=== PATIENT | female | born 1930 | race Hispanic/Latino ===

== ENCOUNTER 2017-02-15 20:17 | Emergency (ER) | payer MEDICARE ==
[2017-02-15 20:38] VITALS: O2SAT 99
[2017-02-15 20:46] LABS: BASO % 0.4 % (0.0-2.0); EOS % 0.3 % (0.0-4.0); HEMATOCRIT 36.1 % (34.0-47.0); LYMPH # 1.9 K/uL (1.0-4.3); LYMPH % 17.5 % (20.0-40.0); MEAN CELL VOLUME 64.8 fL (81.0-99.0); MEAN CORPUSCULAR HEMOGLOBIN 20.2 pg (27.0-31.0); MEAN CORPUSCULAR HGB CONC 31.2 g/dL (33.0-37.0); MEAN PLATELET VOLUME 9.9 fL (7.2-11.7); MONO # 0.4 K/uL (0.0-0.8); MONO % 3.8 % (0.0-10.0); RED CELL DISTRIBUTION WIDTH 16.7 % (11.5-14.5); WHITE BLOOD COUNT 10.8 K/uL (4.8-10.8)
--- NOTE | 2017-02-15 20:46 | C.PDOC ---
History Of Present Illness 86 y/o female, with history of diabetes, brought in by EMS after found unresponsive at home. Patient was given d50 by medics en route to ER - blood glucose level found to be 33. Denies fever, chills, chest pain, SOB, or other associated symptoms. Chief Complaint (Nursing): Weakness/Neurological Deficit History Per: Patient, EMS History/Exam Limitations: no limitations Current Symptoms Are (Timing): Still Present Recent travel outside of the [place]: No Past Medical History Reviewed: Historical Data, Nursing Documentation, Vital Signs Vital Signs: Last Vital Signs Temp 97.8 F 02/15/17 23:32 Pulse 73 02/15/17 22:44 Resp 12 02/15/17 22:44 BP 183/71 H 02/15/17 22:44 Pulse Ox 99 02/15/17 22:44 - Medical History PMH: HTN Surgical History: Cholecystectomy Family History: States: Unknown Family Hx - Social History Hx Alcohol Use: No Hx Substance Use: No - Immunization History Hx Tetanus Toxoid Vaccination: No Hx Influenza Vaccination: Yes Hx Pneumococcal Vaccination: Yes Review Of Systems Except As Marked, All Systems Reviewed And Found Negative. Constitutional: Negative for: Fever, Chills Cardiovascular: Negative for: Chest Pain Respiratory: Negative for: Cough, Shortness of Breath, Wheezing Gastrointestinal: Negative for: Nausea, Vomiting Skin: Negative for: Rash Physical Exam - Physical Exam Appears: Non-toxic, No Acute Distress, Other (awake, alert) Skin: Warm, Dry Head: Atraumatic, Normacephalic Oral Mucosa: Moist Chest: Symmetrical Cardiovascular: Murmur (systolic murmur 2/6 aortic area) Respiratory: Normal Breath Sounds, No Rales, No Rhonchi, No Wheezing Gastrointestinal/Abdominal: Soft, No Tenderness, No Guarding, No Rebound Back: Normal Inspection Extremity: Normal ROM, Capillary Refill (< 2 sec.), Other (3+ edema bilateral lower extremities ) Neurological/Psych: Oriented x3, Normal Speech, Normal Cognition ED Course And Treatment - Laboratory Results Result Diagrams: 02/15/17 20:43 02/15/17 22:17 ECG: Interpreted By Me, Viewed By Me ECG Rhythm: Sinus Rhythm ECG Interpretation: Abnormal Interpretation Of ECG: Sinus rhythmn with sinus arrythmia, ST-T abnormality- inferolateral, no acute changes, prolonged QT interval, abnormal tracings Rate From EC O2 Sat by Pulse Oximetry: 99 (RA) Pulse Ox Interpretation: Normal Progress Note: CT head, EKG, bloodwork, CxR, UA ordered. Medical Decision Making Medical Decision Makin:40. Patient is alert and conscious. Family does not want her to stay in hospital. Patient will be discharge home. Disposition Counseled Patient/Family Regarding: Diagnosis - Disposition Referrals: [facility] [Outside] Disposition: HOME/ ROUTINE Disposition Time: 23:32 Condition: STABLE Instructions: Diabetic Hypoglycemia (ED) Forms: [employer] (Montenegrin) - POA Present On Arrival: None - Clinical Impression Clinical Impression: Hypoglycemia, Diabetes mellitus - Scribe Statement The provider has reviewed the documentation as recorded by the Scribe SM All medical record entries made by the Scribe were at my direction and personally dictated by me. I have reviewed the chart and agree that the record accurately reflects my personal performance of the history, physical exam, medical decision making, and the department course for this patient. I have also personally directed, reviewed, and agree with the discharge instructions and disposition.
[2017-02-15 20:55] LABS: CHLORIDE 105 mmol/L (98-107); SODIUM 139 mmol/L (132-148)
[2017-02-15 20:58] LABS: ALB/GLOB RATIO 1.3 (1.0-2.1); ALKALINE PHOSPHATASE 39 U/L (38-126); ALT/SGPT 26 U/L (9-52); AST/SGOT 41 U/L (14-36); BILIRUBIN,TOTAL 1.1 mg/dL (0.2-1.3); BLOOD UREA NITROGEN 14 mg/dL (7-17); CARBON DIOXIDE 20 mmol/L (22-30); GFR AFRICAN-AMERICAN > 60; GLUCOSE,RANDOM 128 mg/dL (65-105); TOTAL PROTEIN 7.4 g/dL (6.3-8.3)
[2017-02-15 20:59] LABS: CALCIUM 8.9 mg/dl (8.6-10.4)
[2017-02-15 21:11] LABS: POTASSIUM 6.1 mmol/L (3.6-5.2)
--- NOTE | 2017-02-15 21:38 | CT ---
EXAM: CT Head Without Intravenous Contrast CLINICAL HISTORY: 86 years old, female; Pain; Headache; Headache not specified TECHNIQUE: Axial computed tomography images of the head/brain without intravenous contrast. All CT scans at this facility use one or more dose reduction techniques, viz.: automated exposure control; ma/kV adjustment per patient size (including targeted exams where dose is matched to indication; i.e. head); or iterative reconstruction technique. COMPARISON: No relevant prior studies available. FINDINGS: Brain: No acute intracranial hemorrhage. Age-appropriate periventricular white matter disease. No edema. Basal ganglia calcifications. 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 Ventricles: Age-appropriate ventriculomegaly. Bones: No acute displaced fracture. Sinuses: Unremarkable as visualized. No acute sinusitis. Mastoid air cells: Unremarkable as visualized. No mastoid effusion. IMPRESSION: No acute intracranial hemorrhage, or suspicious mass effect.
[2017-02-15 22:29] LABS: CHLORIDE 104 mmol/L (98-107); POTASSIUM 4.6 mmol/L (3.6-5.2); SODIUM 139 mmol/L (132-148)
[2017-02-15 22:31] LABS: GFR AFRICAN-AMERICAN > 60
[2017-02-15 22:32] LABS: BLOOD UREA NITROGEN 14 mg/dL (7-17); CALCIUM 9.3 mg/dl (8.6-10.4); CARBON DIOXIDE 23 mmol/L (22-30); GLUCOSE,RANDOM 117 mg/dL (65-105)
[2017-02-15 22:46] VITALS: BP 183/71; PULSE 73; RESP 12
[2017-02-15 23:33] VITALS: TEMP 97.8
--- NOTE | 2017-02-16 08:58 | RAD ---
HISTORY: leg edema, R/O CHF COMPARISON: No prior. FINDINGS: LUNGS: Moderate venous congestion. Right hilar prominence. Diffuse increased interstitial lung markings. PLEURA: No significant pleural effusion identified, no pneumothorax apparent. CARDIOVASCULAR: Calcification at the aortic knob. Tortuous aorta. OSSEOUS STRUCTURES: Degenerative changes in the spine and shoulders. VISUALIZED UPPER ABDOMEN: Normal. OTHER FINDINGS: None. IMPRESSION: Moderate venous congestion. Right hilar prominence. Diffuse increased interstitial lung markings.
--- NOTE | 2017-02-20 22:01 | CARD ---
APPROVED REPORT EKG Measurement Heart [id number] <Conclusion> Sinus rhythm with marked sinus arrhythmia ST & T wave abnormality, consider inferolateral ischemia Prolonged QT Abnormal ECG
== END 2017-02-15 23:53 | disposition home or self-care (01) ==
LOC: C.ER 20:17
DX: E11.649 Type 2 diabetes mellitus with hypoglycemia without coma (principal); I10 Essential (primary) hypertension

== ENCOUNTER 2017-07-18 10:27 | Emergency (ER) | payer MEDICARE ==
[2017-07-18 10:41] VITALS: BMI 30.2
--- NOTE | 2017-07-18 11:53 | C.PDOC ---
History Of Present Illness 87 y/o female presents to ED sent by PMD for evaluation of low hemoglobin. As per daughters at bedside patient had blood work 1 month ago and had hemoglobin of 9. Patient had lab work again 4 days ago and were called yesterday by PMD that hemoglobin was 8.3 and to come to ED for evaluation. Patient is on folic acid and denies blood in stool, hematuria or weakness. Time Seen by Provider: 07/18/17 10:50 Chief Complaint (Nursing): Abnormal Labs History Per: Patient, Family History/Exam Limitations: no limitations Onset/Duration Of Symptoms: Days Current Symptoms Are (Timing): Still Present Past Medical History Reviewed: Historical Data, Nursing Documentation, Vital Signs Vital Signs: Last Vital Signs Temp 98.6 F 07/18/17 14:02 Pulse 78 07/18/17 14:02 Resp 20 07/18/17 14:02 BP 144/76 07/18/17 14:02 Pulse Ox 100 07/18/17 14:02 - Medical History PMH: HTN Surgical History: Cholecystectomy Family History: States: No Known Family Hx - Social History Hx Alcohol Use: No Hx Substance Use: No - Immunization History Hx Tetanus Toxoid Vaccination: No Hx Influenza Vaccination: Yes Hx Pneumococcal Vaccination: Yes Review Of Systems Constitutional: Negative for: Fever, Chills Gastrointestinal: Negative for: Nausea, Vomiting, Hematochezia Skin: Negative for: Rash Neurological: Negative for: Weakness Physical Exam - Physical Exam Appears: Non-toxic, No Acute Distress Skin: Warm, Dry, No Rash Head: Atraumatic, Normacephalic Eye(s): bilateral: Normal Inspection Oral Mucosa: Moist Neck: Normal ROM, Supple Cardiovascular: Rhythm Regular Respiratory: Normal Breath Sounds, No Rales, No Rhonchi, No Wheezing Gastrointestinal/Abdominal: Soft, No Tenderness, No Guarding, No Rebound Neurological/Psych: Oriented x3 ED Course And Treatment - Laboratory Results Result Diagrams: 07/18/17 12:04 07/18/17 12:04 O2 Sat by Pulse Oximetry: 99 (RA) Pulse Ox Interpretation: Normal Medical Decision Making Medical Decision Making: Impression: anemia Plan: Labs Progress: Labs reviewed. Hgb is 7.8. Case discussed with attending. Recommends rectal exam and stool guaiac Stool Guaiac negative with control monitor performed. 1302- spoke with PCP Dr. Arcos and discussed lab findings hemoglobin of 7.8. Dr Arcos states patient normally has Hgb above 10. Patient has PMH Thalassemia minor, KADY. 06/15 Hgb 9, [address] Arcos recommends patient to be admitted to medicine ironer and observed for bleeding. I discussed results with patient and daughters at bedside HIPAA compliant. The patient and family do not want patient to stay in the hospital. Patient has no pain or somatic complaints. She denies any dizziness, headache, chest pain or SOB. I explained to family, their physician wants patient to be admitted. The patient declines to have further medical evaluation and Admission, and wishes to leave the Emergency Department. This action is against my medical advice to the patient and with informed refusal. The patient was told that evaluation and treatment are necessary and a full explanation of the rationale was given. The risks of leaving were explained to the patient and family which include, but are not limited to, worsening of known or currently unknown conditions, syncope, permanent disability and from undiagnosed or untreated conditions. Based on my conversations with the patient, the patient has the capacity to make this informed decision and understands the clinical situation and my explanation of the risks of leaving. The patient voluntarily accepts these risks and a signed AMA form documenting our conversation was obtained and form completed. The patient was given the opportunity to ask questions and reconsider. The patient was encouraged to return to the Emergency Department at any time for further evaluation. Patient had no signs of instability on discharge Disposition Counseled Patient/Family Regarding: Diagnosis, Need For Followup - Disposition Referrals: Caio Ordonez MD [Staff Provider] - Disposition: AGAINST MEDICAL ADVICE Disposition Time: 13:55 Condition: STABLE Instructions: Anemia Caused by Low Iron, Adult (DC), Leaving Against Medical Advice Forms: [employer] (Danish) - POA Present On Arrival: None - Clinical Impression Clinical Impression: Thalassemia minor, Iron (Fe) deficiency anemia - PA / ACADEMIC ADMINISTRATOR / Resident Statement MD/DO has reviewed & agrees with the documentation as recorded. - Scribe Statement The provider has reviewed the documentation as recorded by the Lonny Saldaña All medical record entries made by the Scribrhea were at my direction and personally dictated by me. I have reviewed the chart and agree that the record accurately reflects my personal performance of the history, physical exam, medical decision making, and the department course for this patient. I have also personally directed, reviewed, and agree with the discharge instructions and disposition.
[2017-07-18 12:18] LABS: INR 1.1; PROTHROMBIN TIME 12.1 SECONDS (9.7-12.2)
[2017-07-18 12:21] LABS: BASO # 0.1 K/uL (0.0-0.2); BASO % 1.1 % (0.0-2.0); EOS # 0.2 K/uL (0.0-0.7); EOS % 2.2 % (0.0-4.0); HEMOGLOBIN 7.8 g/dL (11.0-16.0); LYMPH % 34.2 % (20.0-40.0); MEAN CELL VOLUME 63.8 fL (81.0-99.0); MEAN CORPUSCULAR HEMOGLOBIN 20.1 pg (27.0-31.0); MEAN CORPUSCULAR HGB CONC 31.5 g/dL (33.0-37.0); MEAN PLATELET VOLUME 9.9 fL (7.2-11.7); MONO # 0.7 K/uL (0.0-0.8); MONO % 7.6 % (0.0-10.0); NEUT # 4.8 K/uL (1.8-7.0); NEUT % 54.9 % (50.0-75.0); NRBC % 0.2 % (0.0-2.0); RBC 3.89 Mil/uL (3.80-5.20); RED CELL DISTRIBUTION WIDTH 16.9 % (11.5-14.5); WHITE BLOOD COUNT 8.8 K/uL (4.8-10.8)
[2017-07-18 12:39] LABS: ALB/GLOB RATIO 1.2 (1.0-2.1); ALBUMIN 3.5 g/dL (3.5-5.0); ALT/SGPT 15 U/L (9-52); AST/SGOT 17 U/L (14-36); BLOOD UREA NITROGEN 14 mg/dL (7-17); CALCIUM 9.4 mg/dl (8.6-10.4); GFR AFRICAN-AMERICAN > 60; GFR NON-AFRICAN AMERICAN > 60
[2017-07-18 14:03] VITALS: BP 144/76; PULSE 78; RESP 20; TEMP 98.6
[2017-07-18 17:13] VITALS: O2SAT 99
== END 2017-07-18 14:08 | disposition left against medical advice (07) ==
LOC: C.ER 10:27
DX: D56.3 Thalassemia minor (principal); D50.9 Iron deficiency anemia, unspecified; I10 Essential (primary) hypertension